=== PATIENT | male | born 1980 | race African-American/Black ===

== ENCOUNTER → 2019-08-04 | Outpatient (CLI) | payer OTHER ==
[2019-08-04 18:22] LABS: BASOPHILS % (AUTO) 0 % (0-10); EOSINOPHILS # (AUTO) 0.1 10^3/uL (0.0-0.3); EOSINOPHILS % (AUTO) 3 % (0-10); HEMATOCRIT 43 % (40-54); HEMOGLOBIN 14.3 G/DL (13.3-17.7); LYMPHOCYTES # (AUTO) 2.2 X 10^3 (1.0-4.0); LYMPHOCYTES % (AUTO) 44 % (12-44); MEAN CORPUSCULAR HEMOGLOBIN 27 PG (25-34); MEAN CORPUSCULAR HGB CONC 33 G/DL (32-36); MEAN CORPUSCULAR VOLUME 82 FL (80-99); MEAN PLATELET VOLUME 9.1 FL (7.4-10.4); MONOCYTES # (AUTO) 0.5 X 10^3 (0.0-1.0); MONOCYTES % (AUTO) 10 % (0-12); NEUTROPHILS # (AUTO) 2.1 X 10^3 (1.8-7.8); NEUTROPHILS % (AUTO) 43 % (42-75); PLATELET COUNT 214 10^3/uL (130-400); WHITE BLOOD COUNT 4.9 10^3/uL (4.3-11.0)
[2019-08-04 18:38] LABS: ALANINE AMINOTRANSFERASE 17 U/L (0-55); ALBUMIN 4.5 GM/DL (3.2-4.5); ALKALINE PHOSPHATASE 21 U/L (40-136); BILIRUBIN,TOTAL 0.4 MG/DL (0.1-1.0); BUN/CREATININE RATIO 16; CALCIUM 9.6 MG/DL (8.5-10.1); CARBON DIOXIDE 26 MMOL/L (21-32); CHLORIDE 107 MMOL/L (98-107); CREATININE SERUM 1.28 MG/DL (0.60-1.30); GFR ESTIMATED > 60; GLUCOSE 83 MG/DL (70-105); POTASSIUM 4.2 MMOL/L (3.6-5.0); SODIUM 143 MMOL/L (135-145); TOTAL PROTEIN 7.6 GM/DL (6.4-8.2)
== END ==
LOC: LAB 18:06
PROVIDERS: ATTEND Nurse Practitioner Family
DX: R07.89 Other chest pain (principal)
CPT/HCPCS: 36415; 80053; 85025; 85379

== ENCOUNTER → 2019-09-09 | Outpatient (CLI) | payer OTHER ==
--- NOTE | 2019-09-09 13:39 | Diagnostic Imaging Report ---
PROCEDURE: CT chest without contrast. TECHNIQUE: Multiple contiguous axial images were obtained through the chest without the use of intravenous contrast. Auto Exposure Controls were utilized during the CT exam to meet ALARA standards for radiation dose reduction. INDICATION: Right chest pain radiating into the back and cough. COMPARISON: None available. FINDINGS: Absence of intravenous contrast decreases sensitivity for detection of lymphadenopathy and vascular pathology. TRACHEA AND MAIN BRONCHI: Patent without evidence of tracheal or endobronchial lesion. LUNGS AND PLEURA: Clear lungs. No pleural effusion or pneumothorax. MEDIASTINUM AND TAWANDA: Visualized thyroid gland is normal. There is a borderline enlarged subcarinal lymph node which measures 8 mm in short axis diameter, possibly reactive in nature. No danny mediastinal or hilar lymphadenopathy. Esophagus is nondistended. HEART AND VESSELS: Heart is normal in size. No pericardial effusion. Thoracic aorta is nonaneurysmal. DIAPHRAGM AND UPPER ABDOMEN: Unremarkable. CHEST WALL: Moderate bilateral gynecomastia. BONES: No acute abnormality. IMPRESSION: No acute cardiopulmonary process. No findings to account for the patient's symptoms. Dictated by: Dictated on workstation # [id number]
== END ==
LOC: RAD 12:52
PROVIDERS: ATTEND Nurse Practitioner Family
DX: R07.9 Chest pain, unspecified (principal); K30 Functional dyspepsia
CPT/HCPCS: 71250

== ENCOUNTER → 2019-10-21 | Outpatient (CLI) | payer OTHER | LOC: LAB 09:54 | PROVIDERS: ATTEND Nurse Practitioner Family | DX: K30 Functional dyspepsia (principal); B96.81 Helicobacter pylori [H. pylori] as the cause of diseases classified elsewhere | CPT/HCPCS: 36415; 86677 ==